=== PATIENT | female | born 1965 | race Caucasian/White ===

== ENCOUNTER 2017-01-27 16:10 | Emergency (ER) | payer OTHER ==
--- NOTE | 2017-01-27 16:59 | UC ---
Throat Pain/Nasal Primitivo HPI - HPI Summary HPI Summary: complaint of pain in her left nare that started 4 days ago pimple burst in her nose and since then her nose is becoming more tendern and she feels a burning in her sinuses hurts to talk and eat nasal congestion for approx 7 days no pain in right nare taking her regular pain medications without any relief of pain denies fever and chills - History of Current Complaint Chief Complaint: UCRespiratory Stated Complaint: SINUS COMPLAINT Time Seen by Provider: 01/27/17 16:37 Hx Obtained From: Patient Hx Last Menstrual Period: age 40 - Allergies/Home Medications Allergies/Adverse Reactions: Allergies Allergy/AdvReac Type Severity Reaction Status Date / Time Amoxicillin [From Augmentin] Allergy Intermediate Hives Verified 01/27/17 16:43 Clavulanic Acid Allergy Intermediate Hives Verified 01/27/17 16:43 [From Augmentin] Clindamycin Allergy Intermediate Hives Verified 01/27/17 16:43 Codeine Allergy Intermediate Hives Verified 01/27/17 16:43 Erythromycin Allergy Intermediate Hives Verified 01/27/17 16:43 Lansoprazole [From Prevacid] Allergy Intermediate Diarrhea Verified 01/27/17 16: 43 Penicillins Allergy Intermediate Hives Verified 01/27/17 16:43 benacar Allergy Intermediate Hives Uncoded 01/27/17 16:43 monostat Allergy Intermediate Hives Uncoded 01/27/17 16:43 PMH/Surg Hx/FS Hx/Imm Hx Previously Healthy: Yes Endocrine History Of: Denies: Diabetes Cardiovascular History Of: Reports: Cardiac Disorders - angina, Hypertension Denies: Pacemaker/ICD Respiratory History Of: Denies: Asthma - Surgical History Surgical History: Yes Surgery Procedure, Year, and Place: RT HIP REPLACEMENT with question of metal screws. HYSTERECTOMY. GALLBLADDER. BUNION ON Right FOOT REMOVED. TONSILS REMOVED - Family History Known Family History: Negative: Cardiac Disease, Hypertension, Diabetes - Social History Occupation: Employed Full-time Lives: With Family Alcohol Use: Rare Substance Use Type: None Smoking Status (MU): Never Smoked Tobacco Review of Systems Constitutional: Negative Skin: Other - right nare pain Eyes: Negative ENT: Nasal Discharge Respiratory: Cough Cardiovascular: Negative Gastrointestinal: Negative Genitourinary: Negative Motor: Negative Neurovascular: Negative Musculoskeletal: Negative Neurological: Negative Psychological: Negative All Other Systems Reviewed And Are Negative: Yes Physical Exam Triage Information Reviewed: Yes Appearance: No Pain Distress, Well-Nourished Vital Signs: Initial Vital Signs Temp 98.7 F 01/27/17 16:35 Pulse 85 01/27/17 16:35 Resp 18 01/27/17 16:35 BP 131/79 01/27/17 16:35 Vital Signs Reviewed: Yes Eyes: Positive: Conjunctiva Clear ENT: Positive: Pharyngeal erythema, Nasal congestion, Nasal drainage, TMs normal , Other: - left nare slight edema and tenderness, inside of nare erythemaous ans small amont of purulent drainage Throat Pain/Nasal Course/Dx - Course Course Of Treatment: exam completed. will treat for cellilitus with bacrtoban and bactrim has appt with PCP 02/01/17, concurrent URI symptoms - Differential Dx/Diagnosis Differential Diagnosis/HQI/PQRI: Sinusitis, URI, Other - cellulits Provider Diagnoses: cellulitis left nare, URI Discharge - Discharge Plan Condition: Stable Disposition: HOME Prescriptions: Mupirocin 2% OINT* [Bactroban 2 % Oint*] 1 applic TOPICAL BID #1 tube Sulfamethox/Trimethoprim DS* [Bactrim DS 800/160 TAB*] 1 tab PO BID #14 tab Patient Education Materials: Cellulitis (ED), Upper Respiratory Infection (ED) Referrals: Roscoe Sharma MD [Primary Care Provider] - Additional Instructions: Please take antibiotic and use bactroban as directed Increase fluids and rest Take acetaminophen or ibuprofen for fever or pain Please review your discharge instructions. If your symptoms do not improve please call your primary care provider or return to urgent care. Your blood pressure is pre-hypertensive reading. Please contact your primary care provider within 1 day -4 weeks for further evaluation.
[2017-01-27 17:08] VITALS: BP 131/79
== END 2017-01-27 17:18 | disposition home or self-care (01) ==
LOC: UCCORT 16:10
DX: J34.0 Abscess, furuncle and carbuncle of nose (principal); Z88.1 Allergy status to other antibiotic agents; Z88.5 Allergy status to narcotic agent; Z88.0 Allergy status to penicillin; Z88.8 Allergy status to other drugs, medicaments and biological substances; R09.81 Nasal congestion
CPT/HCPCS: 99212; G0463

== ENCOUNTER 2017-12-08 11:46 | Emergency (ER) | payer OTHER ==
[2017-12-08 12:39] VITALS: BP 114/62
--- NOTE | 2017-12-08 12:49 | UC ---
Skin Complaint HPI - HPI Summary HPI Summary: 52 year old female with skin complaint. "I have this thing in my nose.. I had a pimple a week ago and it popped and this green pus came.. using abx ointment but still hurts". Noticed pain/swelling in sinuses/nose since yesterday. No fever/chills. now feels the pressure and tenderness in left nostril and across the sinus . no fever or chills. no DENTON. No cough. No bloody nose [ End ] - History of Current Complaint Chief Complaint: UCGeneralIllness Time Seen by Provider: 12/08/17 12:23 Stated Complaint: SINUS PRESSURE Hx Obtained From: Patient Hx Last Menstrual Period: age 40 ?: No Onset/Duration: Gradual Onset Onset Severity: Moderate Pain Intensity: 5 Location: Nose - Allergy/Home Medications Allergies/Adverse Reactions: Allergies Allergy/AdvReac Type Severity Reaction Status Date / Time amoxicillin [From Augmentin] Allergy Intermediate Hives Verified 12/08/17 12:27 clavulanic acid Allergy Intermediate Hives Verified 12/08/17 12:27 [From Augmentin] clindamycin Allergy Intermediate Hives Verified 12/08/17 12:27 codeine Allergy Intermediate Hives Verified 12/08/17 12:27 erythromycin base Allergy Intermediate Hives Verified 12/08/17 12:27 lansoprazole [From Prevacid] Allergy Intermediate Diarrhea Verified 12/08/17 12: 27 olmesartan [From Benicar] Allergy Intermediate Hives Verified 12/08/17 12:27 Penicillins Allergy Intermediate Hives Verified 12/08/17 12:27 monostat Allergy Intermediate Hives Uncoded 12/08/17 12:27 Home Medications: Home Medications DULoxetine DR CAP* [Cymbalta CAP*] 60 mg PO DAILY 12/08/17 [History Confirmed ] Furosemide TAB* [Lasix TAB*] 20 mg DAILY 12/08/17 [History Confirmed 12/08/17] Topiramate TAB(*) [Topamax 100 mg tab] 100 mg PO BID 12/08/17 [History Confirmed 12/08/17] amLODIPine TAB* [Norvasc 5 mg TAB*] 5 mg PO BID 12/08/17 [History Confirmed 01/22] Review of Systems Skin: Other - see hpi ENT: Nasal Discharge Is Patient Immunocompromised?: No All Other Systems Reviewed And Are Negative: Yes PMH/Surg Hx/FS Hx/Imm Hx Cardiovascular History: Hypertension Psychological History: Anxiety - Surgical History Surgical History: Yes Surgery Procedure, Year, and Place: RT HIP REPLACEMENT with metal screws. HYSTERECTOMY. GALLBLADDER. BUNION ON Right FOOT REMOVED. TONSILS REMOVED - Family History Known Family History: Negative: Cardiac Disease, Hypertension, Diabetes - Social History Occupation: Employed Full-time Lives: With Family Alcohol Use: None Substance Use Type: None Smoking Status (MU): Never Smoked Tobacco Physical Exam Triage Information Reviewed: Yes Appearance: Well-Appearing, No Pain Distress, Well-Nourished Vital Signs: Initial Vital Signs Temp 98.1 F 12/08/17 12:34 Pulse 68 12/08/17 12:34 Resp 16 12/08/17 12:34 BP 114/62 12/08/17 12:34 Pulse Ox 100 12/08/17 12:34 Vital Signs Reviewed: Yes Eye Exam: Normal ENT Exam: Normal ENT: Positive: Nasal congestion, Other - left inferior turbinate swollen and erythematous . no bleeding . no obvious head of an abscess noted Dental Exam: Normal Neck exam: Normal Neck: Positive: 1 Respiratory Exam: Normal Cardiovascular Exam: Normal Musculoskeletal Exam: Normal Neurological Exam: Normal Psychological Exam: Normal Skin Exam: Normal Course/Dx - Course Course Of Treatment: concern for abscess but not ready to be drained at this time refer to ENT and start doxy to cover for MRSA and pt with numerous allergy and can use the muporicin thart she has for another 3 days - Differential Diagnoses - Skin Complaint Differential Diagnoses: Abscess, Cellulitis, Impetigo, MRSA - Diagnoses Provider Diagnoses: nasal abscess Discharge - Discharge Plan Condition: Good Disposition: HOME Prescriptions: DOXYcycline CAP(*) [DOXYcycline 100MG CAP(*)] 100 mg PO BID #20 cap Patient Education Materials: Abscess (ED) Referrals: Roscoe Sharma MD [Primary Care Provider] - 3 Days Adama Palacio MD [Medical Doctor] - 3 Days (ENT referral if needed )
== END 2017-12-08 13:08 | disposition home or self-care (01) ==
LOC: UCCORT 11:46
DX: J32.9 Chronic sinusitis, unspecified (principal); Z88.1 Allergy status to other antibiotic agents; Z88.0 Allergy status to penicillin; Z88.8 Allergy status to other drugs, medicaments and biological substances; F41.9 Anxiety disorder, unspecified; I10 Essential (primary) hypertension
CPT/HCPCS: 99212; G0463

== ENCOUNTER 2019-08-30 11:07 | Emergency (ER) | payer OTHER ==
[2019-08-30 11:26] VITALS: BP 110/73
--- NOTE | 2019-08-30 12:05 | UC ---
Shoulder Pain HPI - HPI Summary HPI Summary: Pt presents with c/o right shoulder pain that began 08/27/19 after sleeping on couch at home. Denies injury or previous surgery to shoulder. States that she is PT for neck pain that has been going "well" but has now been developing right shoulder pain. Pt has been taking flexeril PO three times daily. - History of Current Complaint Chief Complaint: UCUpperExtremity Stated Complaint: RIGHT SHOULDER CHEST SPASMS Hx Obtained From: Patient Hx Last Menstrual Period: age 40 ?: No Onset/Duration: Sudden Onset, Lasting Days, Still Present, Worse Since - onset Timing: Constant Severity Initially: Moderate Severity Currently: Severe Location Of Pain: Is Discrete @ - right shoulder pain Pain Intensity: 10 Character: Dull, Aching, Spasmodic, Stiffness Aggravating Factor(s): Movement, Lifting, Flexion, Extension, External Rotation , Abduction Alleviating Factor(s): Nothing Associated Signs And Symptoms: Positive: Weakness Related History: Dominant Hand Right - Risk Factors Non-Orthopedic Risk Factor: Negative DVT Risk Factors: Negative Septic Arthritis Risk Factor: Negative - Allergies/Home Medications Allergies/Adverse Reactions: Allergies Allergy/AdvReac Type Severity Reaction Status Date / Time amoxicillin [From Augmentin] Allergy Intermediate Hives Verified 08/30/19 11:24 clavulanic acid Allergy Intermediate Hives Verified 08/30/19 11:24 [From Augmentin] clindamycin Allergy Intermediate Hives Verified 08/30/19 11:24 codeine Allergy Intermediate Hives Verified 08/30/19 11:24 erythromycin base Allergy Intermediate Hives Verified 08/30/19 11:24 lansoprazole [From Prevacid] Allergy Intermediate Diarrhea Verified 08/30/19 11: 24 olmesartan [From Benicar] Allergy Intermediate Hives Verified 08/30/19 11:24 Penicillins Allergy Intermediate Hives Verified 08/30/19 11:24 monostat Allergy Intermediate Hives Uncoded 08/30/19 11:24 PMH/Surg Hx/FS Hx/Imm Hx Previously Healthy: Yes Cardiovascular History: Cardiac Disease, Hypertension - has not taken her BP medications in the last 3 days. - Surgical History Surgical History: Yes Surgery Procedure, Year, and Place: RT HIP REPLACEMENT with metal screws. HYSTERECTOMY complete 2004. GALLBLADDER. BUNION ON Right FOOT REMOVED. TONSILS REMOVED - Family History Known Family History: Negative: Cardiac Disease, Hypertension, Diabetes - Social History Occupation: Employed Full-time Lives: With Family Alcohol Use: Occasionally Substance Use Type: None Smoking Status (MU): Never Smoked Tobacco Have You Smoked in the Last Year: No Review of Systems All Other Systems Reviewed And Are Negative: Yes Constitutional: Positive: Negative Skin: Positive: Negative Eyes: Positive: Negative ENT: Positive: Negative Respiratory: Positive: Negative Cardiovascular: Positive: Negative Gastrointestinal: Positive: Negative Genitourinary: Positive: Negative Motor: Positive: Decreased ROM, Weakness Neurovascular: Positive: Negative Musculoskeletal: Positive: Arthralgia, Decreased ROM, Myalgia Neurological: Positive: Negative Psychological: Positive: Negative Is Patient Immunocompromised?: No Physical Exam Triage Information Reviewed: Yes Appearance: Pain Distress Vital Signs: Initial Vital Signs Temp 99 F 08/30/19 11:15 Pulse 62 08/30/19 11:15 Resp 16 08/30/19 11:15 BP 110/73 08/30/19 11:15 Pulse Ox 97 08/30/19 11:15 Vital Signs Reviewed: Yes Eye Exam: Normal ENT: Positive: Hearing grossly normal Neck exam: Other - pt states that her pain radiates from shoudler to neck and she is unable to lift her head due to pain. But pt denies neck pain. 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 Denies chest pain Psychological Exam: Normal Skin Exam: Normal Shoulder Course/Dx - Course Course Of Treatment: I discussed my recommendation to seek further evaluation and testing at a higher level of care facility and pt agreed with plan of care. - Differential Dx/Diagnosis Differential Diagnosis/HQI/PQRI: Sprain, Strain, Other - septic joint, shingles Provider Diagnosis: Right shoulder pain Discharge ED - Sign-Out/Discharge Documenting (check all that apply): Patient Departure All imaging exams completed and their final reports reviewed: No Studies - Discharge Plan Condition: Stable Disposition: HOME-RECOMMEND TO ED Patient Education Materials: Arthralgia (ED), Shoulder Pain (ED) Referrals: Roscoe Sharma MD [Primary Care Provider] - As Soon As Possible Additional Instructions: It is recommended that you go directly to the closest emergency room as soon as possible. - Billing Disposition and Condition Condition: STABLE Disposition: Home-Recommend to ED
== END 2019-08-30 12:19 | disposition home health service (06) ==
LOC: UCCORT 11:07
DX: M25.511 Pain in right shoulder (principal); Z88.0 Allergy status to penicillin; Z88.1 Allergy status to other antibiotic agents; Z88.5 Allergy status to narcotic agent; Z88.8 Allergy status to other drugs, medicaments and biological substances; I10 Essential (primary) hypertension
CPT/HCPCS: 99212; G0463